=== PATIENT | female | born 1965 | race Two or more races ===

== ENCOUNTER 2016-07-21 16:54 | Emergency (ER) | payer OTHER ==
[2016-07-21] MEDS ORDERED: CYCLOBENZAPRINE HCL 10 MG TABLET ONE (17:39)
[2016-07-21] MEDS ORDERED: IBUPROFEN 800 MG TABLET ONE (17:39)
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
== END 2016-07-21 18:50 | disposition home or self-care (01) ==
LOC: ED 16:54
DX: M54.5 Low back pain (principal); R10.9 Unspecified abdominal pain; M25.519 Pain in unspecified shoulder; V53.5XXA Driver of pick-up truck or van injured in collision with car, pick-up truck or van in traffic accident, initial encounter; Y92.410 Unspecified street and highway as the place of occurrence of the external cause
CPT/HCPCS: 71020; 72100; 99283 ×2; A9270